=== PATIENT | female | born 1985 | race Caucasian/White ===

== ENCOUNTER 2017-08-18 15:43 | Inpatient (IN) | payer OTHER ==
[~2017-08-18] VITALS: Ht 167.6 cm; Wt 64.9 kg
[~2017-08-18 15:43] MED LIST: HUM SUBQ
--- NOTE | 2017-08-18 15:43 | NUR ---
Patient was BIBA at this time.
--- NOTE | 2017-08-18 15:45 | NUR ---
31F BIBA FROM HOME C/O 5150 HOLD FOR SUICIDAL IDEATION; PT PLACED ON 5150 HOLD BY [facility] DAVENPORT [facility] TEAM; PT AA&OX4 AT THIS TIME, CHEMA; PT SLIGHTY ANXIOUS, BUT COOPERATIVE AT THIS TIME; PT STATES NO IDEAS OF SUICIDAL IDEATION, HURTING SELF, OR OTHERS AT THIS TIME; PT STATES " I JUST HAVEN'T BEEN TAKING MY INSULIN. I'M A TYPE 1 DIABETIC. I'VE JUST BEEN FEELING BLAH LATELY"; TACHYCARDIA NOTED ON THE MONITOR AT THIS TIME; BL LUNG SOUNDS CLEAR, RR EVEN/UNLABORED, SKIN IS WARM/DRY/INTACT AT THIS TIME; PT NOTED WITH 2 HEALING "SCRATCH" MARKES TO LEFT FOREARM; PT STATES " I JUST SCRATCHED MYSELF"; PT PLACED ON MONITOR WITH [address]; ALL HARMFUL AND POTENTIALLY HARMFUL OBJECTS REMOVED FROM PT'S ROOM AT THIS TIME. SITTER AT BEDSIDE; PT CHANGED INTO GOWN WITH HOB ELEVATED AND IN LOWEST POSITION; POSITIONED FOR COMFORT; ER MD MADE AWARE OF STATUS. WILL CONTINUE TO MONITOR. Addendum: 08/18/17 at 1709 by MEDSS PT STATES NO N/V/D AT THIS TIME.
[2017-08-18 15:48] VITALS: BP 150/86
--- NOTE | 2017-08-18 15:52 | NUR ---
Dr. Vargas evaluating patient.
[2017-08-18] MEDS ORDERED: BUPR-10 PO (15:56)
[2017-08-18] MEDS ORDERED: ALPR0.5T2 PO (15:56)
[2017-08-18] MEDS ORDERED: INSU100S22 SC (15:56)
[2017-08-18] MEDS ORDERED: CITA40TA13 PO (15:56)
--- NOTE | 2017-08-18 16:01 | NUR ---
Patient taken to bed 03 via gurney per EMS.
[2017-08-18] MEDS ORDERED: NACL 0.9% 1,000 ML IV ONE (16:05)
--- NOTE | 2017-08-18 16:23 | NUR ---
RT at bedside to draw ABG.
[2017-08-18 16:57] LABS: ACETONE, SERUM NEGATIVE (NEGATIVE)
[2017-08-18 17:00] LABS: BASOPHILS # (AUTO) 0.2 K/uL (0.00-0.22); BASOPHILS % (AUTO) 1.7 % (0.0-2.0); EOSINOPHILS % (AUTO) 0.3 % (0.0-4.0); HEMATOCRIT 40.9 % (36-48); HEMOGLOBIN 13.7 g/dL (12.0-16.0); LYMPHOCYTES # (AUTO) 0.8 K/uL (2.5-16.5); LYMPHOCYTES % (AUTO) 8.2 % (20.5-51.1); MEAN CORPUSCULAR HEMOGLOBIN 28 pg (27-31); MEAN CORPUSCULAR HGB CONC 34 g/dL (33-37); MEAN CORPUSCULAR VOLUME 83 fL (80-94); MONOCYTES # (AUTO) 0.6 K/uL (0.8-1.0); NEUTROPHILS # (AUTO) 8.4 K/uL (1.8-7.7); NEUTROPHILS % (AUTO) 83.8 % (42.2-75.2); PLATELET COUNT (AUTO) 366 K/uL (140-450); RED BLOOD CELL COUNT(AUTO) 4.94 MIL/uL (4.20-5.40); RED CELL DISTRIBUTION WIDTH 13.9 % (11.6-13.7)
[2017-08-18] MEDS ORDERED: SODIUM BICARBONATE 8.4% 50 MEQ in NACL 0.9% 1,000 ML IV SCH (17:00)
--- NOTE | 2017-08-18 17:01 | NUR ---
PT APPEARS TO BE RESTING COMFORTABLY IN BED; RR EVEN/UNLABORED; POSITIONED FOR COMFORT; SITTER AT BEDSIDE; WILL CONTINUE TO MONITOR.
[2017-08-18 17:12] LABS: ALBUMIN 4.4 g/dL (3.4-5.0); ASPARTATE AMINOTRANSFERASE 22 U/L (15-37); CARBON DIOXIDE 15.1 mmol/L (21-32); CHLORIDE 92 mmol/L (98-107); GFR ARICAN-AMERICAN 83 mL/min (>90); MAGNESIUM 2.2 mg/dL (1.8-2.4); POTASSIUM 5.1 mmol/L (3.5-5.1); SODIUM SERUM 128 mmol/L (136-145); UREA NITROGEN, BLOOD 12 mg/dL (7-18)
[2017-08-18 17:13] LABS: ACETAMINOPHEN < 0.5 ug/ml (10-30); SALICYLATE < 2.8 mg/dL (2.8-20.0)
[2017-08-18 17:14] LABS: GLUCOSE 723 mg/dL (74-106)
[2017-08-18] MEDS ORDERED: INSULIN HUMAN REGULAR 100 UNITS in NACL 0.9% 100 ML IV ONE (17:20)
[2017-08-18 17:24] LABS: APPEARANCE,URINE CLEAR (CLEAR); BILIRUBIN,URINE NEGATIVE (NEGATIVE); BLOOD, URINE TRACE-L (NEGATIVE); COLOR,URINE YELLOW (YELLOW); LEUKOCYTE ESTERASE ,URINE NEGATIVE (NEGATIVE); NITRITE, URINE NEGATIVE (NEGATIVE); UGLUCOSE 3+ (NEGATIVE)
[2017-08-18] MEDS ORDERED: INSULIN HUMAN REGULAR 100 UNITS in NACL 0.9% 100 ML IV SCH (17:35)
[2017-08-18 17:36] LABS: RBC,URINE 3-10 (FEW) /HPF (0-5); WBC,URINE 0-5 (RARE) /HPF (0-5)
[2017-08-18] MEDS ORDERED: NACL 0.9% IV SCH (17:49)
[2017-08-18] MEDS ORDERED: INSULIN HUMAN REGULAR IV SCH (17:49)
--- NOTE | 2017-08-18 17:49 | NUR ---
CALLED PHARMACY TO BRING MEDICATION PER ER MD DR. SEGURA ORDER.
--- NOTE | 2017-08-18 17:52 | NUR ---
ICU TO CALL BACK FOR REPORT ONCE PT MOVED.
[2017-08-18] MEDS ORDERED: ONDANSETRON 4 MG/2 ML VIAL IM/IVP PRN (17:55)
[2017-08-18] MEDS ORDERED: MORPHINE SULFATE 2 MG/ML SYR IVP PRN (17:55)
[2017-08-18] MEDS ORDERED: ACETAMINOPHEN 325 MG TAB PO PRN (17:55)
[2017-08-18] MEDS ORDERED: HYDROcodone/APAP 7.5/325 MG 1 TAB PO PRN (17:55)
[2017-08-18] MEDS ORDERED: DOCUSATE SODIUM 100 MG GELCAP PO PRN (17:55)
--- NOTE | 2017-08-18 18:01 | NUR ---
PT APPEARS TO BE RESTING COMFORTABLY IN BED; RR EVEN/UNLABORED; POSITIONED FOR COMFORT; SITTER AT BEDSIDE; WILL CONTINUE TO MONITOR.
[2017-08-18 18:40] LABS: BARBITURATE, URINE NEG. ng/ml (NEG <=200); BENZODIAZEPINE, URINE NEG. ng/mL (NEG <=200); CANNABINOID, URINE NEG. ng/mL (NEG <=50); COCAINE, URINE NEG. ng/mL (NEG <=300); OPIATE, URINE NEG. ng/mL (NEG <=2000); PHENCYCLIDINE SCREEN,URINE NEG. ng/mL (NEG <=25)
[2017-08-18 18:40] LABS: PROTHROMBIN TIME 9.9 secs (10.8-13.4)
--- NOTE | 2017-08-18 18:46 | NUR ---
REPORT GIVEN TO MATILDA MEDINA; PT TO BE TRANSFERRED AFTER RN TRANSFERS PT TO FLOOR; RN TO CALL BACK.
[2017-08-18 18:48] LABS: CHOL/HDL RATIO 4.2 (1-4.5); FREE T4 (FREE THYROXINE) 1.3 ng/dL (0.76-1.46); PHOSPHORUS 3.9 mg/dL (2.5-4.9); THYROID STIMULATING HORMONE 1.02 uIU/mL (0.34-3.74)
--- NOTE | 2017-08-18 19:18 | NUR ---
Patient will be admitted to care of DR. ARAMBULA. Admited to ICU. Will go to room ICU 6. Belongings list completed. Report to ADAM GREY.
[2017-08-18] MEDS ORDERED: DEXTROSE 50% 50 ML SYR IVP PRN (19:25)
--- NOTE | 2017-08-18 19:35 | NUR ---
RECEIVED PATIENT VIA GURNEY WITH 3 ER STAFF. PATIENT AWAKE ALERT AND ORIENTED, VERBALLY RESPONSIVE. SKIN WARM AND DRY TO TOUCH NO APPARENT PHYSICAL DISTRESS. PATIENT ABLE TO AMBULATE FROM GURNEY TO BED WITH STEADY GAIT. LEADS ATTACHED FOR MONITORING. PATIENT RECEIVED ON IVF AND INSULIN DRIP, NO S/S OF HYPO/HYPERGLYCEMIA NOTED. ADMISSION ASSESSMENT INITIATED. ENSURED NO CONTRABAND WITH PATIENT, SAFETY PRECAUTIONS MAINTAINED. WILL CONTINUE TO MONITOR.
--- NOTE | 2017-08-18 19:45 | NUR ---
DR. GREGG AT BEDSIDE, ASSESSING PATIENT.
[2017-08-18 20:00] VITALS: BP 105/68
--- NOTE | 2017-08-18 20:15 | NUR ---
BLOOD SUGAR CHECK AT THIS TIME 234 MG/DL, DR. GREGG NOTIFIED.
[2017-08-18] MEDS ORDERED: LORazepam 1 MG TAB PO PRN (20:35)
[2017-08-18] MEDS ORDERED: DOCUSATE 100 MG/10 ML UDC PO PRN (20:45)
[2017-08-18] MEDS ORDERED: INSULIN DETEMIR 100 UNITS/ML 10 ML VIAL SUBQ SCH ×2 (21:00)
[2017-08-18] MEDS ORDERED: SODIUM CHLORIDE 1 GM TAB PO SCH (21:00)
[2017-08-18] MEDS ORDERED: BLOOD GLUCOSE MONITORING 1 DEV DEV FS SCH ×2 (21:00→23:00)
--- NOTE | 2017-08-18 21:11 | NUR ---
MEDICATIONS ADMINISTERED AND TOLERATED WELL.
--- NOTE | 2017-08-18 21:40 | NUR ---
CALL MADE TO DR. VIGIL SALT TABLETS UNAVAILABLE, WITH SCHEDULED MEDICATION AT THIS TIME SODIUM LEVEL 128, CURRENTLY ON NS @ 150 ML/HR. OK TO START TOMORROW.
[2017-08-18 22:00] VITALS: BP 98/67
[2017-08-18] MEDS: INSULIN LISPRO SLIDING SCALE 100 UNITS/ML VIAL SUBQ PRN (22:46)
[2017-08-19] VITALS (7 sets, daily range): BP systolic 96–118; BP diastolic 57–76
[2017-08-19] MEDS: NACL 0.9% 1,000 ML IV SCH ×3 (00:07→07:12)
--- NOTE | 2017-08-19 02:00 | NUR ---
PATIENT ASLEEP IN BED, NO APPARENT PHYSICAL DISTRESS. WILL CONTINUE TO MONITOR.
--- NOTE | 2017-08-19 05:39 | NUR ---
ASSISTED AND SUPERVISED PATIENT WITH MORNING CARE. ORAL CARE BY HERSELF WITH MONITORING. SPONGE BATHED SELF.
[2017-08-19 06:01] LABS: BASOPHILS # (AUTO) 0.2 K/uL (0.00-0.22); BASOPHILS % (AUTO) 2.6 % (0.0-2.0); EOSINOPHILS # (AUTO) 0.2 K/uL (0-0.4); EOSINOPHILS % (AUTO) 2.5 % (0.0-4.0); HEMATOCRIT 34.8 % (36-48); HEMOGLOBIN 11.4 g/dL (12.0-16.0); LYMPHOCYTES # (AUTO) 1.7 K/uL (2.5-16.5); LYMPHOCYTES % (AUTO) 25.6 % (20.5-51.1); MEAN CORPUSCULAR HEMOGLOBIN 27 pg (27-31); MEAN CORPUSCULAR HGB CONC 33 g/dL (33-37); MEAN CORPUSCULAR VOLUME 84 fL (80-94); MONOCYTES # (AUTO) 0.6 K/uL (0.8-1.0); MONOCYTES % (AUTO) 9.4 % (1.7-9.3); NEUTROPHILS # (AUTO) 4.1 K/uL (1.8-7.7); NEUTROPHILS % (AUTO) 59.9 % (42.2-75.2); PLATELET COUNT (AUTO) 327 K/uL (140-450); RED BLOOD CELL COUNT(AUTO) 4.15 MIL/uL (4.20-5.40); RED CELL DISTRIBUTION WIDTH 13.4 % (11.6-13.7); WHITE BLOOD COUNT (AUTO) 6.8 K/uL (4.8-10.8)
[2017-08-19 06:45] LABS: PHOSPHORUS 4.1 mg/dL (2.5-4.9)
[2017-08-19 07:13] LABS: ANION GAP 14.5 (8-16); CARBON DIOXIDE 20.5 mmol/L (21-32); CREATININE 0.6 mg/dL (0.6-1.3)
--- NOTE | 2017-08-19 07:20 | NUR ---
RECEIVED A REPORT FROM ADAM FORBES. PT IS ALERT AND ORIENTED X4. DENIES ANY PAIN OR DISCOMFORT AT THIS TIME. NO S/SX OF ACUTE DISTRESS NOTED. O2 SAT 99% ON ROOM AIR. ST ON THE MONITOR. SCD IN PLACE. IV SITE ON RT WRIST 22G, PATENT AND INTACT. SAFETY PRECAUTION. BED IN LOW POSITION AND ON 1:1 NURSE MONITORING AT BESIDE. WILL CONTINUE TO MONITOR.
--- NOTE | 2017-08-19 07:45 | NUR ---
PROVIDED BREAKFAST AND PT HAS GOOD APPETITE. WILL CONTINUE TO MONITOR
--- NOTE | 2017-08-19 08:07 | NUR ---
FNS REFERRAL RECEIVED FOR UNSPECIFIED REASON. REFERRAL DOES NOT MEET HIGH RISK CRITERIA PER HOSPITAL POLICY. PATIENT WILL BE SEEN AND ASSESSED ACCORDING TO THE NUTRITION CARE POLICY. PATIENT HAS BEEN SCREENED AND CATEGORIZED MODERATE NUTRITION RISK. PATIENT WILL BE SEEN WITHIN 3-5 DAYS OF ADMISSION. 08/21/17-08/23/[address]
--- NOTE | 2017-08-19 08:12 | NUR ---
PT TOLERATED MEDICATION WELL.
[2017-08-19 08:20] LABS: T4 (THYROXINE) 8.8 ug/dL (4.5-12.0)
[2017-08-19] MEDS ORDERED: BLOOD GLUCOSE MONITORING 1 DEV DEV FS SCH ×2 (08:54→11:30)
--- NOTE | 2017-08-19 08:56 | NUR ---
FAXED PT'S FACE SHEET TO DR. FLORES AND AWAITING FOR CONFIRMATION.
[2017-08-19] MEDS ORDERED: CITALOPRAM 20 MG TAB PO SCH (09:00)
[2017-08-19] MEDS ORDERED: ALPRAZolam 0.5 MG TAB PO SCH (09:00)
[2017-08-19] MEDS: BLOOD GLUCOSE MONITORING 1 DEV DEV FS SCH ×2 (09:29→16:35)
[2017-08-19] MEDS: INSULIN LISPRO SLIDING SCALE 100 UNITS/ML VIAL SUBQ PRN ×3 (09:44→16:34)
--- NOTE | 2017-08-19 10:00 | NUR ---
RECEIVED THE FAX CONFIRMATION FROM DR. FLORES. PT STABLE. NO S/SX OF ACUTE DISTRESS AT THIS TIME
--- NOTE | 2017-08-19 10:49 | NUR ---
PT IS ON ULTRASOUND OF KIDNEY EXAM ORDERED. PT IS TOLERATING WELL.
--- NOTE | 2017-08-19 12:20 | NUR ---
PT STABLE IN BED. NO S/SX OF ACUTE DISTRESS NOTED. WILL CONTINUE TO MONITOR
--- NOTE | 2017-08-19 13:53 | NUR ---
CM NOTE INITIAL REVIEW FAXED TO [facility] / FAX# [phone], ATTN: LATANYA #[phone] [id number]
--- NOTE | 2017-08-19 14:25 | NUR ---
AAOX4. DENIES ANY PAIN OR DISCOMFORT AT THIS TIME. SAFETY PRECAUTION. BED IN LOW POSITION AND CONTINUE ON 1:1 NURSE MONITORING.
--- NOTE | 2017-08-19 15:44 | NUR ---
DR. SPEARS FOR DR. FLORES IN TO SEE PT. WILL FOLLOW UP ON ORDERS.
--- NOTE | 2017-08-19 16:19 | NUR ---
PER DR. SPEARS, PT DOES NOT NEED TO BE ON 5150 HOLD.
--- NOTE | 2017-08-19 16:24 | NUR ---
INFORMED DR. LUCAS IS COVERING FOR DR. LUCAS REGARDING DR. SPEARS'S ORDER; PT DOES NOT MEET 5150, ONCE MEDICALLY CLEARED DISCHARGE HOME. AWAITING FOR CALL BACK AND WILL FOLLOW UP ON ORDERS.
--- NOTE | 2017-08-19 17:07 | NUR ---
DR. PARTIDA IN TO SEE PT AND WILL FOLLOW UP ON ORDERS. PT STABLE AND NO S/SX OF ACUTE DISTRESS.
[2017-08-19] MEDS ORDERED: INSU100S22 SC (17:26)
[2017-08-19] MEDS ORDERED: BLOO1EAC MC (17:26)
[2017-08-19] MEDS ORDERED: PEN-124 MC (17:26)
[2017-08-19] MEDS ORDERED: HUM SUBQ (17:26)
[2017-08-19] MEDS ORDERED: LANC-947 MC (17:26)
[2017-08-19] MEDS ORDERED: ASPI-1173 PO (17:29)
[2017-08-19] MEDS ORDERED: ATOR20TA40 PO (17:29)
--- NOTE | 2017-08-19 18:15 | NUR ---
PT IS STABLE AND DISCHARGED INSTRUCTION GIVEN. IV LINE DISCONTINUED AND CANNULA INTACT. PT DISCHARGED WITH ALL PERSONAL BELONGINGS. PT AMBULATED OUT OF UNIT IN STABLE CONDITION.
[2017-08-19] MEDS ORDERED: DOCUSATE SODIUM 100 MG GELCAP PO SCH (21:00)
[2017-08-19] MEDS ORDERED: ATORVASTATIN 20 MG TAB PO SCH (21:00)
[2017-08-20] MEDS ORDERED: ECOTRIN 81 MG TABEC PO SCH (09:00)
== END 2017-08-19 18:15 | disposition home or self-care (01) | DRG 420 ==
LOC: MED 15:43 → MIC 17:56 → OBSVTOIN 08-19 09:43
PROVIDERS: ADMIT Family Medicine Sports Medicine; ATTEND Family Medicine Sports Medicine
DX: E13.00 Other specified diabetes mellitus with hyperosmolarity without nonketotic hyperglycemic-hyperosmolar coma (NKHHC) (principal); D68.59 Other primary thrombophilia; R45.851 Suicidal ideations; F33.2 Major depressive disorder, recurrent severe without psychotic features; E87.8 Other disorders of electrolyte and fluid balance, not elsewhere classified; E13.51 Other specified diabetes mellitus with diabetic peripheral angiopathy without gangrene; F41.0 Panic disorder [episodic paroxysmal anxiety]; E87.1 Hypo-osmolality and hyponatremia; E78.2 Mixed hyperlipidemia; D64.9 Anemia, unspecified; R31.9 Hematuria, unspecified; Z56.0 Unemployment, unspecified; Z91.14 Patient's other noncompliance with medication regimen; Z79.4 Long term (current) use of insulin
CPT/HCPCS: 96361; 96365; 99285; G0378; 36415; 36600; 71010; 76770; 80048; 80053; 80305; 81001; 81025; 82009; 82150; 82803; 82948; 83036; 83690; 83735; 83880; 84100; 84436; 84439; 84443; 84479; 84484; 85025; 85610; 85730; 87081; 93005; 93925; 93970; G0480; G0482; J1815; J3490; J7030; Q0092

== ENCOUNTER 2018-07-11 19:02 | Emergency (ER) | payer OTHER ==
[~2018-07-11] VITALS: Ht 167.6 cm; Wt 72.6 kg
[~2018-07-11 19:02] MED LIST changes: +ASPI-1173 PO; +ATOR20TA40 PO; +BLOO1EAC MC; +CITA40TA13 PO; +INSU100S22 SC; +LANC-947 MC; +PEN-124 MC
[2018-07-11 19:21] VITALS: BP 111/77
--- NOTE | 2018-07-11 19:24 | NUR ---
TO BED # 7 AMBULATORY, REPORT GIVEN TO ANMOL MEDINA
--- NOTE | 2018-07-11 19:30 | NUR ---
PATIENT PRESENTS TO ED WITH C/O HAVING AN ANXIETY ATTACK. AAOX4 WITH EVEN AND STEADY GAIT; LUNGS CLEAR BL; HR EVEN AND REGULAR; PATIENT DENIES PAIN AT THIS TIME. VSS; PATIENT POSITIONED FOR COMFORT; HOB ELEVATED; BEDRAILS UP X2; BED DOWN. ER MD MADE AWARE OF PT STATUS.
--- NOTE | 2018-07-11 20:39 | NUR ---
Dr. Solorzano evaluating patient at bedside.
[2018-07-11] MEDS ORDERED: LORazepam 2 MG/ML VIAL IM/IVP ONE (20:55)
[2018-07-11] MEDS ORDERED: INSULIN REGULAR, HUMAN 100 UNIT/ML VIAL SUBQ ONE (20:55)
[2018-07-11 21:50] VITALS: BP 116/78
== END 2018-07-11 21:50 | disposition home or self-care (01) ==
LOC: MED 19:02
DX: F41.0 Panic disorder [episodic paroxysmal anxiety] (principal); E11.9 Type 2 diabetes mellitus without complications; Z79.82 Long term (current) use of aspirin; Z79.4 Long term (current) use of insulin; Z79.899 Other long term (current) drug therapy
CPT/HCPCS: 96372; 99284; J1815; J2060

== ENCOUNTER 2018-11-13 16:44 | Emergency (ER) | payer OTHER ==
[~2018-11-13] VITALS: Ht 167.6 cm; Wt 64.9 kg
[2018-11-13 16:50] VITALS: BP 142/84
--- NOTE | 2018-11-13 16:52 | NUR ---
PT AMBULATES TO BED 8
--- NOTE | 2018-11-13 17:00 | NUR ---
Pt being evaluated by Dr Solorzano at bedside
[2018-11-13] MEDS ORDERED: LORazepam 2 MG/ML VIAL IM ONE (17:15)
--- NOTE | 2018-11-13 17:39 | NUR ---
Bib brother and sister inlaw with c/o anxiety/panic attack today, stating repeatedly "wants to see my kids" who are with their dad. PT IS TEARFUL AT TIME OF TRIAGE. VSS; PATIENT POSITIONED FOR COMFORT; HOB ELEVATED; BEDRAILS UP X1; BED DOWN. ER MD MADE AWARE OF PT STATUS.
[2018-11-13 17:57] VITALS: BP 142/84
== END 2018-11-13 17:58 | disposition home or self-care (01) ==
LOC: MED 16:44
DX: F41.9 Anxiety disorder, unspecified (principal); E11.9 Type 2 diabetes mellitus without complications; Z79.899 Other long term (current) drug therapy; Z79.4 Long term (current) use of insulin
CPT/HCPCS: 96372; 99284; J2060

== ENCOUNTER 2022-08-25 09:23 | Emergency (ER) | payer OTHER ==
[~2022-08-25] VITALS: Ht 167.6 cm; Wt 75.3 kg
[~2022-08-25 09:23] MED LIST changes: -ASPI-1173 PO; +ASPI-1856 PO
[2022-08-25 09:49] VITALS: BP 140/78
--- NOTE | 2022-08-25 10:00 | NUR ---
36 y/o female bib self, pt referred from urgent care for removal/referral for white mass on right side of tongue since May 2022. 07/01 pain. pmh: type 1 diabetic nka med: insulin, celexa
[2022-08-25] MEDS ORDERED: IBUP-2213 PO (11:36)
[2022-08-25] MEDS ORDERED: BENZ1GEL13 MM (11:36)
[2022-08-25 11:49] VITALS: BP 140/78
--- NOTE | 2022-08-25 11:49 | NUR ---
Patient discharged with v/s stable. Written and verbal after care instructions given and explained. Patient alert, oriented and verbalized understanding of instructions. Ambulatory with steady gait. All questions addressed prior to discharge. ID band removed. Patient advised to follow up with PMD. Rx of ibuprofen, benzocaine (sent) given. Patient educated on indication of medication including possible reaction and side effects. Opportunity to ask questions provided and answered.
== END 2022-08-25 11:49 | disposition home or self-care (01) ==
LOC: MED 09:23
DX: K13.70 Unspecified lesions of oral mucosa (principal); F41.9 Anxiety disorder, unspecified; E10.9 Type 1 diabetes mellitus without complications; Z79.4 Long term (current) use of insulin; Z79.899 Other long term (current) drug therapy; Z79.82 Long term (current) use of aspirin
CPT/HCPCS: 99282

== ENCOUNTER 2024-04-24 16:04 | Emergency (ER) | payer OTHER ==
[~2024-04-24] VITALS: Ht 167.6 cm; Wt 67.6 kg
[~2024-04-24 16:04] MED LIST changes: +BENZ1GEL13 MM; -BLOO1EAC MC; +IBUP-2213 PO; +[UNRECOGNIZED DRUG - CODE] MC
[2024-04-24 16:32] VITALS: BP 137/82; PULSE 112; RESP 22; TEMP 97.9; O2SAT 100
[2024-04-24 17:02] LABS: APPEARANCE,URINE CLEAR (CLEAR); BILIRUBIN,URINE NEGATIVE (NEGATIVE); BLOOD, URINE 3+ (NEGATIVE); COLOR,URINE YELLOW (YELLOW); LEUKOCYTE ESTERASE ,URINE TRACE (NEGATIVE); NITRITE, URINE NEGATIVE (NEGATIVE); PH,URINE 6.5 (5.0-9.0); PROTEIN,URINE NEGATIVE (NEGATIVE); UGLUCOSE NEGATIVE (NEGATIVE); UROBILINOGEN,URINE 0.2 EU/dL (0.2 - 1)
[2024-04-24 17:09] LABS: BACTERIA,URINE FEW /HPF (None Seen); SQUAMOUS EPITHELIAL CELL,UR 4-10 (MOD) /LPF (0-3 (FEW)); WBC,URINE 0-5 /HPF (0-5)
[2024-04-24] MEDS: NACL 0.9% 1,000 ML IV ONE (17:30)
[2024-04-24 17:34] LABS: BASOPHILS # (AUTO) 0.1 K/uL (0.00-0.22); BASOPHILS % (AUTO) 0.9 % (0.0-2.0); EOSINOPHILS # (AUTO) 0.1 K/uL (0-0.4); EOSINOPHILS % (AUTO) 1.2 % (0.0-4.0); HEMATOCRIT 35.9 % (36-48); HEMOGLOBIN 11.6 g/dL (12.0-16.0); LYMPHOCYTES # (AUTO) 1.5 K/uL (2.5-16.5); LYMPHOCYTES % (AUTO) 17.4 % (20.5-51.1); MEAN CORPUSCULAR HEMOGLOBIN 23 pg (27-31); MEAN CORPUSCULAR HGB CONC 32 g/dL (33-37); MEAN CORPUSCULAR VOLUME 72.3 fL (80-94); MONOCYTES # (AUTO) 0.7 K/uL (0.8-1.0); MONOCYTES % (AUTO) 7.4 % (1.7-9.3); NEUTROPHILS # (AUTO) 6.5 K/uL (1.8-7.7); NEUTROPHILS % (AUTO) 73.1 % (42.2-75.2); PLATELET COUNT (AUTO) 418 K/uL (140-450); RED BLOOD CELL COUNT(AUTO) 4.96 MIL/uL (4.20-5.40); RED CELL DISTRIBUTION WIDTH 18.3 % (11.6-13.7); WHITE BLOOD COUNT (AUTO) 8.8 K/uL (4.8-10.8)
[2024-04-24] MEDS ORDERED: MEDR10TA PO (18:05)
== END 2024-04-24 18:23 | disposition home or self-care (01) ==
LOC: MED 16:04
DX: N92.0 Excessive and frequent menstruation with regular cycle (principal); D64.9 Anemia, unspecified; Z79.899 Other long term (current) drug therapy
CPT/HCPCS: 36415; 81001; 81025; 84443; 85025; 96360; 99283; J7030